=== PATIENT | female | born 1955 | race African-American/Black ===

== ENCOUNTER 2018-04-15 13:39 | Inpatient (IN) ==
[2018-04-15 14:16] LABS: Basophils % 0.2 % (0.0-0.8); Hematocrit 31.8 VOL% (35.7-47.0); Hemoglobin 9.8 GM/DL (12.0-16.0); Immature Granulocytes % 1.8 %; Mean Corpuscular HGB Conc 30.8 GM/DL (32-36); Mean Corpuscular Hemoglobin 30 PG (27-34); Mean Corpuscular Volume 95.8 FL (87-102); Mean Platelet Volume 10.1 FL (9.6-12.0); Monocytes # 0.6 10*3/uL (0.11-0.8); Monocytes % 3.4 % (1.7-12.7); NRBC # 0.02 10*3/uL; Neutrophils # 15.1 10*3/uL (1.4-7.4); Neutrophils % 88.6 % (38.7-73.9); Platelet Count 251 T/CUMM (130-400); Red Blood Count 3.32 MC/CUMM (3.8-5.5); Red Cell Distribution Width 14.9 % (9.3-17.3); White Blood Count 17.1 T/CUMM (4-12)
[2018-04-15 14:29] LABS: INR 1.1; PT Patient Result 12.2 SECS
[2018-04-15 14:39] LABS: Hypochromasia Slight; Lymphocytes 2 % (20-55); Platelet Estimate Adequate; Polychromasia Slight; Segmented Neutrophils 90 % (50-85); Total Cells Counted 100
[2018-04-15 14:47] LABS: Albumin 2.6 G/DL (3.4-5.0); Bilirubin,Total 1.9 MG/DL (0.2-1.0); Calcium 8.9 MG/DL (8.5-10.1); Osmolality,Calculated 282.5 MOS/KG (273-304); Potassium 3.3 MMOL/L (3.5-5.1)
[2018-04-15] MEDS ORDERED: FUROSEMIDE 40 MG/4 ML VIAL IV STA (14:49)
[2018-04-15] MEDS ORDERED: NITROGLYCERIN 2% OINT 1 INCH/GM PACK TOP STA (14:50)
[2018-04-15] MEDS ORDERED: cefTRIAXone 1,000 MG in SODIUM CHLORIDE 0.9% 100 ML IV STA (15:54)
[2018-04-15] MEDS ORDERED: cefTRIAXone 1,000 MG in SYRINGE 1 EACH IV STA (16:08)
[2018-04-15] MEDS ORDERED: MAGNESIUM SULF RIDER 2 GM in PREMIX 1 EACH IV PRN (16:10)
[2018-04-15] MEDS ORDERED: DEXTROSE 50% 25 GM/50 ML VIAL IV PRN (16:10)
[2018-04-15] MEDS ORDERED: ONDANSETRON 4 MG/2 ML VIAL IV PRN (16:10)
[2018-04-15] MEDS ORDERED: diphenhydrAMINE CAP 25 MG CAPSULE PO PRN (16:10)
[2018-04-15] MEDS ORDERED: GLUCAGON 1 MG VIAL IM PRN (16:10)
[2018-04-15] MEDS ORDERED: guaiFENesin/DM ER 600-30 MG TABLET PO PRN (16:10)
[2018-04-15] MEDS ORDERED: MAGNESIUM SULF RIDER 4 GM in PREMIX 1 EACH IV PRN (16:10)
[2018-04-15] MEDS ORDERED: POLYETHYLENE GLYCOL POWDER 17 GM PACK PO PRN (16:14)
[2018-04-15] MEDS ORDERED: NITROGLYCERIN SL 0.4 MG TABLET SL PRN (16:14)
[2018-04-15] MEDS ORDERED: ALBUTEROL 2.5 MG/3 ML NEB RESP TX PRN (16:14)
[2018-04-15] MEDS ORDERED: FLUTICASONE PROPIONATE INH PRN (16:14)
[2018-04-15] MEDS ORDERED: CYCLOBENZAPRINE 10 MG TABLET PO PRN (16:14)
[2018-04-15] MEDS ORDERED: ENOXAPARIN 40 MG/0.4 ML SYRINGE SUBCUT SCH (16:30)
[2018-04-15 16:52] LABS: ABG Base Excess 1.7 MMOL/L (-2.5-2.5); ABG HCO3 25.9 MMOL/L (20-26); ABG Oxygen Saturation 95.6 % (95-100); ABG PCO2 41.5 MM HG (35-48); ABG PH 7.413 (7.35-7.45); ABG PO2 76.5 MM HG (80-95); ABG TCO2 23.5 MMOL/L (23-27)
[2018-04-15 16:52] LABS: Risk Ratio 1.49; Thyroid Stimulating Hormone 1.73 uIU/ml (0.358-3.74)
[2018-04-15] MEDS: AZITHROMYCIN INJ 500 MG in SODIUM CHLORIDE 0.9% 250 ML IV SCH (16:52)
[2018-04-15] MEDS ORDERED: AZITHROMYCIN 500 MG VIAL IV ONE (16:54)
[2018-04-15] MEDS ORDERED: KETOROLAC TROMETHAMINE BOTH EYES SCH (17:00)
[2018-04-15] MEDS: cefTRIAXone 1,000 MG in SYRINGE 1 EACH IV SCH (17:35)
[2018-04-15] MEDS ORDERED: cloNIDine 0.1 MG TABLET PO PRN (19:36)
[2018-04-15 21:42] LABS: Apearance,Urine Slightly Hazy (Clear); Bilirubin,Urine Negative (Negative); Blood, Urine Large mg/dL (Negative); Glucose,Urine (UA) Negative (Negative); Hyaline Casts,Urine 4 /LPF (0-3); Ketones,Urine Negative (Negative); Mucus,Urine Occasional /LPF (Occasional); Nitrite,Urine Negative (Negative); Protein,Urine 100 MG/DL; RBC,Urine 372 /HPF (0-4); Squamous Epithelial Cell,Urine Occasional /HPF (0-10); Urine Color Amber (Yellow); WBC,Urine 12 /HPF (0-6)
[2018-04-15] MEDS: DOCUSATE SODIUM 100 MG CAPSULE PO SCH (22:16)
[2018-04-15] MEDS: DORZOLAMIDE 2% OPH SOLN 10 ML BOTTLE BOTH EYES SCH (22:17)
[2018-04-15] MEDS: POTASSIUM CHLORIDE 20 MEQ PACK PO SCH (22:17)
[2018-04-15] MEDS: METOPROLOL SUCCINATE XL 50 MG TABLET PO SCH (22:17)
[2018-04-15] MEDS: ROSUVASTATIN 10 MG TABLET PO SCH (22:17)
[2018-04-15] MEDS ORDERED: ENOXAPARIN 80 MG/0.8 ML SYRINGE SUBCUT ONE (22:25)
[2018-04-15] MEDS ORDERED: DILTIAZEM 25 MG/5 ML VIAL IV ONE (23:44)
[2018-04-15] MEDS ORDERED: DILTIAZEM 50 MG/10 ML VIAL IV ONE (23:44)
[2018-04-15] MEDS: dilTIAZem Drip 125 MG/125 ML PREMIX IV SCH (23:55)
[2018-04-16 03:52] LABS: Basophils % 0.2 % (0.0-0.8); Hematocrit 29.5 VOL% (35.7-47.0); Hemoglobin 9.1 GM/DL (12.0-16.0); Immature Granulocytes % 3.3 %; Immature Granulocytes Absolute 0.62 #; Lymphocytes # 1.9 10*3/uL (1.4-4.0); Lymphocytes % 10.1 % (21.3-54.2); Mean Corpuscular HGB Conc 30.8 GM/DL (32-36); Mean Corpuscular Hemoglobin 29 PG (27-34); Mean Corpuscular Volume 95.2 FL (87-102); Mean Platelet Volume 10.6 FL (9.6-12.0); Monocytes # 0.9 10*3/uL (0.11-0.8); Monocytes % 4.7 % (1.7-12.7); NRBC # 0.04 10*3/uL; Neutrophils # 15.2 10*3/uL (1.4-7.4); Neutrophils % 81.7 % (38.7-73.9); Platelet Count 251 T/CUMM (130-400); White Blood Count 18.6 T/CUMM (4-12)
[2018-04-16 04:15] LABS: Albumin 2.4 G/DL (3.4-5.0); Bilirubin,Total 1.5 MG/DL (0.2-1.0); Calcium 8.4 MG/DL (8.5-10.1); Osmolality,Calculated 275.1 MOS/KG (273-304); Potassium 3.4 MMOL/L (3.5-5.1); Total Protein 7.5 G/DL (6.4-8.3)
[2018-04-16 04:56] LABS: Band Neutrophils 3 % (0-10); Lymphocytes 8 % (20-55); Segmented Neutrophils 85 % (50-85)
[2018-04-16 04:57] LABS: Hypochromasia 1+; Platelet Estimate Normal
[2018-04-16 04:58] LABS: Ovalocytes Few; Polychromasia Few; Total Cells Counted 100
[2018-04-16] MEDS: POTASSIUM CHLORIDE RIDER 10 MEQ in PREMIX 1 EACH IV PRN ×3 (06:43→08:39)
[2018-04-16] MEDS: MONTELUKAST 10 MG TABLET PO SCH (08:25)
[2018-04-16] MEDS: CLOPIDOGREL 75 MG TABLET PO SCH (08:25)
[2018-04-16] MEDS: POTASSIUM CHLORIDE 20 MEQ PACK PO SCH ×2 (08:25→20:58)
[2018-04-16] MEDS: FUROSEMIDE 40 MG/4 ML VIAL IV SCH (08:26)
[2018-04-16] MEDS: PANTOPRAZOLE 40 MG TABLET PO SCH (08:26)
[2018-04-16] MEDS: DOCUSATE SODIUM 100 MG CAPSULE PO SCH ×2 (08:26→20:55)
[2018-04-16] MEDS: DORZOLAMIDE 2% OPH SOLN 10 ML BOTTLE BOTH EYES SCH ×4 (08:26→21:02)
[2018-04-16] MEDS: METOPROLOL SUCCINATE XL 50 MG TABLET PO SCH ×2 (08:26→20:56)
[2018-04-16] MEDS: ALLOPURINOL 100 MG TABLET PO SCH (08:26)
[2018-04-16] MEDS ORDERED: NON-FORMULARY MEDICATION (Omeprazole [Omeprazole] 20 MG) PO SCH (09:00)
[2018-04-16] MEDS ORDERED: NAPROXEN 500 MG TABLET PO SCH (09:00)
[2018-04-16 14:49] LABS: Basophils % 0.1 % (0.0-0.8); Eosinophils % 0.2 % (0.00-10.9); Hematocrit 29.6 VOL% (35.7-47.0); Hemoglobin 8.8 GM/DL (12.0-16.0); Immature Granulocytes Absolute 0.33 #; Lymphocytes # 2.2 10*3/uL (1.4-4.0); Lymphocytes % 13.1 % (21.3-54.2); Mean Corpuscular HGB Conc 29.7 GM/DL (32-36); Mean Corpuscular Hemoglobin 29 PG (27-34); Mean Corpuscular Volume 97.7 FL (87-102); Mean Platelet Volume 10.5 FL (9.6-12.0); Monocytes # 0.7 10*3/uL (0.11-0.8); Monocytes % 4.1 % (1.7-12.7); NRBC # 0.03 10*3/uL; Neutrophils # 13.6 10*3/uL (1.4-7.4); Neutrophils % 80.5 % (38.7-73.9); Platelet Count 255 T/CUMM (130-400); Red Blood Count 3.03 MC/CUMM (3.8-5.5); Red Cell Distribution Width 15.3 % (9.3-17.3); White Blood Count 16.9 T/CUMM (4-12)
[2018-04-16] MEDS: ISOSORBIDE MONONITRATE 30 MG TABLET PO SCH (14:50)
[2018-04-16] MEDS: DILTIAZEM 30 MG TABLET PO SCH ×3 (14:50→20:55)
[2018-04-16 15:05] LABS: % Iron Saturation 6.9 % (18-50); Ferritin 253.7 ng/ml (8-252)
[2018-04-16 15:22] LABS: Folate 6.1 NG/ML (5.4-24.0); Vitamin B12 280 PG/ML (211-911)
[2018-04-16 15:39] LABS: Band Neutrophils 4 % (0-10); Lymphocytes 13 % (20-55); Platelet Estimate Normal; Segmented Neutrophils 78 % (50-85); Total Cells Counted 100
[2018-04-16 15:40] LABS: Ovalocytes Few; Polychromasia Few
[2018-04-16 15:41] LABS: Anisocytosis 1+
[2018-04-16] MEDS: cefTRIAXone 1,000 MG in SYRINGE 1 EACH IV SCH (16:08)
[2018-04-16] MEDS: AZITHROMYCIN INJ 500 MG in SODIUM CHLORIDE 0.9% 250 ML IV SCH (16:09)
[2018-04-16 16:51] LABS: Sedimentation Rate-Westergren 115 MM/HR (0-30)
[2018-04-16] MEDS: ROSUVASTATIN 10 MG TABLET PO SCH (20:55)
[2018-04-16] MEDS: ENOXAPARIN 120 MG/0.8 ML SYRINGE SUBCUT SCH (20:57)
[2018-04-17 05:07] LABS: Basophils % 0.2 % (0.0-0.8); Eosinophils # 0.1 10*3/uL (0.0-0.87); Eosinophils % 1.1 % (0.00-10.9); Hemoglobin 8.8 GM/DL (12.0-16.0); Immature Granulocytes % 0.7 %; Immature Granulocytes Absolute 0.07 #; Lymphocytes # 1.9 10*3/uL (1.4-4.0); Mean Corpuscular HGB Conc 30.3 GM/DL (32-36); Mean Corpuscular Hemoglobin 29 PG (27-34); Mean Corpuscular Volume 95.7 FL (87-102); Mean Platelet Volume 10.3 FL (9.6-12.0); Monocytes # 0.6 10*3/uL (0.11-0.8); NRBC # 0.05 10*3/uL; Neutrophils # 6.8 10*3/uL (1.4-7.4); Platelet Count 241 T/CUMM (130-400); Red Blood Count 3.03 MC/CUMM (3.8-5.5); Red Cell Distribution Width 15.1 % (9.3-17.3); White Blood Count 9.4 T/CUMM (4-12)
[2018-04-17 05:33] LABS: Albumin 2.3 G/DL (3.4-5.0); Bilirubin,Total 1.1 MG/DL (0.2-1.0); Calcium 8.6 MG/DL (8.5-10.1); Osmolality,Calculated 280.8 MOS/KG (273-304); Potassium 3.9 MMOL/L (3.5-5.1); Total Protein 7.3 G/DL (6.4-8.3)
[2018-04-17] MEDS: dilTIAZem Drip 125 MG/125 ML PREMIX IV SCH (05:44)
[2018-04-17] MEDS: DILTIAZEM 30 MG TABLET PO SCH ×2 (09:41→13:42)
[2018-04-17] MEDS: DOCUSATE SODIUM 100 MG CAPSULE PO SCH ×2 (09:41→22:31)
[2018-04-17] MEDS: ALLOPURINOL 100 MG TABLET PO SCH (09:41)
[2018-04-17] MEDS: PANTOPRAZOLE 40 MG TABLET PO SCH (09:41)
[2018-04-17] MEDS: METOPROLOL SUCCINATE XL 50 MG TABLET PO SCH ×2 (09:41→22:32)
[2018-04-17] MEDS: CLOPIDOGREL 75 MG TABLET PO SCH (09:41)
[2018-04-17] MEDS: ISOSORBIDE MONONITRATE 30 MG TABLET PO SCH (09:41)
[2018-04-17] MEDS: POTASSIUM CHLORIDE 20 MEQ PACK PO SCH ×2 (09:41→22:31)
[2018-04-17] MEDS: FUROSEMIDE 40 MG/4 ML VIAL IV SCH (09:42)
[2018-04-17] MEDS: DORZOLAMIDE 2% OPH SOLN 10 ML BOTTLE BOTH EYES SCH ×3 (09:42→22:32)
[2018-04-17] MEDS: MONTELUKAST 10 MG TABLET PO SCH (09:43)
[2018-04-17 09:47] LABS: Hemoglobin A1 (Alkaline) 97.5 % (96.5-98.5); Hemoglobin A2 (Alkaline) 2.5 % (1.5-3.5)
[2018-04-17] MEDS: AZITHROMYCIN INJ 500 MG in SODIUM CHLORIDE 0.9% 250 ML IV SCH (16:28)
[2018-04-17] MEDS: cefTRIAXone 1,000 MG in SYRINGE 1 EACH IV SCH (16:28)
[2018-04-17] MEDS: DILTIAZEM 60 MG TABLET PO SCH ×2 (16:28→22:30)
[2018-04-17] MEDS: POTASSIUM CHLORIDE RIDER 10 MEQ in PREMIX 1 EACH IV PRN (17:11)
[2018-04-17] MEDS: ROSUVASTATIN 10 MG TABLET PO SCH (22:31)
[2018-04-17] MEDS: ENOXAPARIN 120 MG/0.8 ML SYRINGE SUBCUT SCH (22:31)
[2018-04-18 04:26] LABS: Basophils % 0.6 % (0.0-0.8); Eosinophils # 0.2 10*3/uL (0.0-0.87); Hematocrit 29.1 VOL% (35.7-47.0); Hemoglobin 8.8 GM/DL (12.0-16.0); Immature Granulocytes % 0.7 %; Immature Granulocytes Absolute 0.04 #; Lymphocytes # 1.9 10*3/uL (1.4-4.0); Lymphocytes % 34.3 % (21.3-54.2); Mean Corpuscular HGB Conc 30.2 GM/DL (32-36); Mean Corpuscular Hemoglobin 29 PG (27-34); Mean Corpuscular Volume 95.1 FL (87-102); Mean Platelet Volume 10.5 FL (9.6-12.0); Monocytes # 0.4 10*3/uL (0.11-0.8); Monocytes % 7.8 % (1.7-12.7); NRBC # 0.08 10*3/uL; Neutrophils # 2.9 10*3/uL (1.4-7.4); Neutrophils % 53.6 % (38.7-73.9); Platelet Count 257 T/CUMM (130-400); Red Blood Count 3.06 MC/CUMM (3.8-5.5); White Blood Count 5.4 T/CUMM (4-12)
[2018-04-18 04:52] LABS: Albumin 2.3 G/DL (3.4-5.0); Bilirubin,Total 1.4 MG/DL (0.2-1.0); Calcium 8.9 MG/DL (8.5-10.1); Osmolality,Calculated 284.7 MOS/KG (273-304); Potassium 4.4 MMOL/L (3.5-5.1); Total Protein 7.4 G/DL (6.4-8.3)
[2018-04-18] MEDS: DILTIAZEM CD 240 MG CAPSULE PO SCH (09:00)
[2018-04-18] MEDS: POTASSIUM CHLORIDE 20 MEQ PACK PO SCH ×2 (09:00→22:28)
[2018-04-18] MEDS: ENOXAPARIN 30 MG/0.3 ML SYRINGE SUBCUT SCH (09:00)
[2018-04-18] MEDS: FUROSEMIDE 40 MG/4 ML VIAL IV SCH (09:00)
[2018-04-18] MEDS: DORZOLAMIDE 2% OPH SOLN 10 ML BOTTLE BOTH EYES SCH ×3 (09:01→22:29)
[2018-04-18] MEDS: METOPROLOL SUCCINATE XL 50 MG TABLET PO SCH ×2 (09:01→22:28)
[2018-04-18] MEDS: ISOSORBIDE MONONITRATE 30 MG TABLET PO SCH (09:01)
[2018-04-18] MEDS: DILTIAZEM 60 MG TABLET PO SCH ×2 (09:01→11:43)
[2018-04-18] MEDS: CLOPIDOGREL 75 MG TABLET PO SCH (09:01)
[2018-04-18] MEDS: MONTELUKAST 10 MG TABLET PO SCH (09:01)
[2018-04-18] MEDS: PANTOPRAZOLE 40 MG TABLET PO SCH (09:01)
[2018-04-18] MEDS: DOCUSATE SODIUM 100 MG CAPSULE PO SCH ×2 (09:01→22:28)
[2018-04-18] MEDS: ALLOPURINOL 100 MG TABLET PO SCH (09:01)
[2018-04-18 10:16] LABS: % Iron Saturation 22.1 % (18-50)
[2018-04-18] MEDS: cefTRIAXone 1,000 MG in SYRINGE 1 EACH IV SCH (15:30)
[2018-04-18] MEDS: AZITHROMYCIN INJ 500 MG in SODIUM CHLORIDE 0.9% 250 ML IV SCH (15:30)
[2018-04-18 15:38] LABS: Folate 7.3 NG/ML (5.4-24.0)
[2018-04-18] MEDS: ROSUVASTATIN 10 MG TABLET PO SCH (22:28)
[2018-04-19 04:25] LABS: Basophils % 0.5 % (0.0-0.8); Eosinophils # 0.1 10*3/uL (0.0-0.87); Hematocrit 29.5 VOL% (35.7-47.0); Hemoglobin 8.8 GM/DL (12.0-16.0); Immature Granulocytes % 0.7 %; Immature Granulocytes Absolute 0.04 #; Lymphocytes # 1.7 10*3/uL (1.4-4.0); Mean Corpuscular HGB Conc 29.8 GM/DL (32-36); Mean Corpuscular Hemoglobin 28 PG (27-34); Mean Corpuscular Volume 94.9 FL (87-102); Mean Platelet Volume 10.7 FL (9.6-12.0); Monocytes # 0.5 10*3/uL (0.11-0.8); NRBC # 0.04 10*3/uL; Neutrophils # 3.3 10*3/uL (1.4-7.4); Neutrophils % 57.8 % (38.7-73.9); Platelet Count 267 T/CUMM (130-400); Red Blood Count 3.11 MC/CUMM (3.8-5.5); White Blood Count 5.6 T/CUMM (4-12)
[2018-04-19 04:55] LABS: Albumin 2.5 G/DL (3.4-5.0); Bilirubin,Total 0.4 MG/DL (0.2-1.0); Osmolality,Calculated 284.7 MOS/KG (273-304); Total Protein 7.8 G/DL (6.4-8.3)
[2018-04-19] MEDS: ENOXAPARIN 30 MG/0.3 ML SYRINGE SUBCUT SCH (09:30)
[2018-04-19] MEDS: FUROSEMIDE 40 MG/4 ML VIAL IV SCH (09:30)
[2018-04-19] MEDS: METOPROLOL SUCCINATE XL 50 MG TABLET PO SCH (09:31)
[2018-04-19] MEDS: CLOPIDOGREL 75 MG TABLET PO SCH (09:31)
[2018-04-19] MEDS: DOCUSATE SODIUM 100 MG CAPSULE PO SCH (09:31)
[2018-04-19] MEDS: POTASSIUM CHLORIDE 20 MEQ PACK PO SCH (09:31)
[2018-04-19] MEDS: ALLOPURINOL 100 MG TABLET PO SCH (09:31)
[2018-04-19] MEDS: PANTOPRAZOLE 40 MG TABLET PO SCH (09:31)
[2018-04-19] MEDS: MONTELUKAST 10 MG TABLET PO SCH (09:31)
[2018-04-19] MEDS: DILTIAZEM CD 240 MG CAPSULE PO SCH (09:31)
[2018-04-19] MEDS: ISOSORBIDE MONONITRATE 30 MG TABLET PO SCH (09:31)
[2018-04-19] MEDS: DORZOLAMIDE 2% OPH SOLN 10 ML BOTTLE BOTH EYES SCH ×2 (09:32→15:10)
[2018-04-19] MEDS ORDERED: MEROPENEM 500 MG in SODIUM CHLORIDE 0.9% 100 ML IV SCH (11:00)
[2018-04-19 12:35] VITALS: BP 171/71
[2018-04-19] MEDS ORDERED: hydrALAZINE 25 MG TABLET PO SCH (15:00)
[2018-04-19] MEDS: AZITHROMYCIN INJ 500 MG in SODIUM CHLORIDE 0.9% 250 ML IV SCH (15:37)
[2018-04-19] MEDS ORDERED: FUROSEMIDE 40 MG TABLET PO SCH (16:00)
== END 2018-04-19 17:15 | disposition home or self-care (01) | DRG 871 ==
LOC: N.ED 13:39 → N.EDINP 16:48 → SUATTDRO 16:48 → N.CC 17:10 → N.TELES 04-17 17:58
PROVIDERS: ADMIT Internal Medicine; ATTEND Internal Medicine

== ENCOUNTER 2019-03-15 12:02 | Observation (INO) ==
[2019-03-15] MEDS ORDERED: ASPIRIN 325 MG TABLET PO STA (12:24)
[2019-03-15] MEDS ORDERED: NITROGLYCERIN SL 0.4 MG TABLET SL PRN ×2 (12:24→16:28)
[2019-03-15 13:06] LABS: Basophils % 0.4 % (0.0-0.8); Eosinophils # 0.1 10*3/uL (0.0-0.87); Eosinophils % 0.8 % (0.00-10.9); Hematocrit 33.8 VOL% (35.7-47.0); Hemoglobin 10.3 GM/DL (12.0-16.0); Immature Granulocytes % 0.3 %; Immature Granulocytes Absolute 0.02 #; Lymphocytes # 2.3 10*3/uL (1.4-4.0); Lymphocytes % 30.5 % (21.3-54.2); Mean Corpuscular HGB Conc 30.5 GM/DL (32-36); Mean Corpuscular Volume 98.5 FL (87-102); Mean Platelet Volume 9.4 FL (9.6-12.0); Monocytes % 7.4 % (1.7-12.7); NRBC # 0.02 10*3/uL; Neutrophils % 60.6 % (38.7-73.9); Platelet Count 304 T/CUMM (130-400); Red Blood Count 3.43 MC/CUMM (3.8-5.5); Red Cell Distribution Width 15.9 % (9.3-17.3); White Blood Count 7.5 T/CUMM (4-12)
[2019-03-15 13:16] LABS: INR 0.9; PT Patient Result 10.1 SECS (9.6-12.2); Partial Thromboplastin Time 25.4 SECS (20.8-36.0)
[2019-03-15 13:37] LABS: Albumin 3.3 G/DL (3.4-5.0); Bilirubin,Total 0.5 MG/DL (0.2-1.0); Calcium 9.2 MG/DL (8.5-10.1); Osmolality,Calculated 282.1 MOS/KG (273-304); Total Protein 8.1 G/DL (6.4-8.3)
[2019-03-15] MEDS ORDERED: ALBUTEROL 2.5 MG/3 ML NEB RESP TX PRN (16:27)
[2019-03-15] MEDS ORDERED: hydrALAZINE 20 MG/1 ML VIAL IV PRN (16:28)
[2019-03-15 16:30] LABS: ABG Base Excess 3.7 MMOL/L (-2.5-2.5); ABG HCO3 27.7 MMOL/L (20-26); ABG Oxygen Saturation 96.6 % (95-100); ABG PCO2 42.9 MM HG (35-48); ABG PH 7.429 (7.35-7.45); ABG PO2 78.4 MM HG (80-95)
[2019-03-15] MEDS ORDERED: DOCUSATE SODIUM 100 MG CAPSULE PO PRN (16:41)
[2019-03-15] MEDS ORDERED: ACETAMINOPHEN 325 MG TABLET PO PRN (16:41)
[2019-03-15] MEDS ORDERED: BUDESONIDE 0.5 MG/2 ML NEB RESP TX SCH (19:00)
[2019-03-15] MEDS: ALBUTEROL/IPRATROPIUM 3 ML NEB RESP TX SCH (20:05)
[2019-03-15] MEDS ORDERED: ATORVASTATIN 40 MG TABLET PO SCH (21:00)
[2019-03-15] MEDS ORDERED: ALLOPURINOL 100 MG TABLET PO SCH (21:00)
[2019-03-15] MEDS: METOPROLOL TARTRATE 50 MG TABLET PO SCH (21:29)
[2019-03-15] MEDS: methylPREDNISolone SOD SUC 125 MG/2 ML VIAL IV SCH (21:29)
[2019-03-15] MEDS: FUROSEMIDE 40 MG TABLET PO SCH (21:29)
[2019-03-16] MEDS: ALBUTEROL/IPRATROPIUM 3 ML NEB RESP TX SCH ×3 (00:25→10:55)
[2019-03-16 03:01] LABS: ABG Base Excess 2.8 MMOL/L (-2.5-2.5); ABG HCO3 26.9 MMOL/L (20-26); ABG Oxygen Saturation 96.4 % (95-100); ABG PH 7.409 (7.35-7.45); ABG PO2 78.3 MM HG (80-95); ABG TCO2 25.5 MMOL/L (23-27); Allen Test Positive; Pt O2 Delivery Device BIPAP
[2019-03-16 04:15] LABS: Calcium 9.6 MG/DL (8.5-10.1); Osmolality,Calculated 280.7 MOS/KG (273-304)
[2019-03-16] MEDS: methylPREDNISolone SOD SUC 125 MG/2 ML VIAL IV SCH (04:40)
[2019-03-16 08:03] VITALS: BP 180/63
[2019-03-16] MEDS ORDERED: MONTELUKAST 10 MG TABLET PO SCH (09:00)
[2019-03-16] MEDS ORDERED: CLOPIDOGREL 75 MG TABLET PO SCH (09:00)
[2019-03-16] MEDS: METOPROLOL TARTRATE 50 MG TABLET PO SCH (09:33)
[2019-03-16] MEDS: FUROSEMIDE 40 MG TABLET PO SCH (09:33)
== END 2019-03-16 13:36 | disposition home or self-care (01) ==
LOC: N.ED 12:02 → N.EDINP 12:02 → N.2W 17:52
PROVIDERS: ADMIT Internal Medicine; ATTEND Internal Medicine